=== PATIENT | male | born 1950 | race African-American/Black ===

== ENCOUNTER 2025-04-13 16:28 | Inpatient (IN) | payer MEDICARE, MEDICAID ==
[~2025-04-13] VITALS: Ht 167.6 cm; Wt 56.7 kg
[~2025-04-13 16:28] MED LIST: AMLO5TAB88 MT; AMLO5TAB88 PO; CALC-26 PO; CHOL400D7 PO; CIPR500S3 PO; FINA-37 MT; GABA-529 MT; LEVE100023 PO; MULT-1146 MT; PROP10TA10 PO; TAMS-54 MT
[2025-04-13 17:14] VITALS: BP 146/89; PULSE 71; RESP 18; TEMP 36.6404
[2025-04-13] MEDS ORDERED: ACETAMINOPHEN 325MG TABLET PO PRN (17:30)
[2025-04-13] MEDS ORDERED: ONDANSETRON HCL 4MG/2ML INJ IV PRN (17:30)
[2025-04-13] MEDS ORDERED: DEXTROSE 50% WATER 50ML SYRINGE IV PRN (17:30)
[2025-04-13] MEDS: ENOXAPARIN 40MG/0.4ML SYR SUBCUT SCH (18:00)
[2025-04-13 20:00] VITALS: BP 164/86; PULSE 70; RESP 18; TEMP 36.6; O2SAT 97
[2025-04-13] MEDS: INSULIN LISPRO 100 UNITS/ML SUBCUT SCH (21:00)
[2025-04-13] MEDS: BLOOD SUGAR DIAGNOSTIC STRIP TEST SCH (21:49)
[2025-04-13] MEDS: LEVETIRACETAM 500MG TABLET PO SCH (21:53)
[2025-04-13] MEDS: ATORVASTATIN CALCIUM 40MG TABLET PO SCH (21:54)
[2025-04-14] MEDS ORDERED: ONDANSETRON HCL 4MG/2ML INJ IV PRN (07:15)
[2025-04-14] MEDS ORDERED: ACETAMINOPHEN 325MG TABLET PO PRN (07:15)
[2025-04-14 08:00] VITALS: BP 143/81; PULSE 70; RESP 14; TEMP 36.4; O2SAT 95
[2025-04-14 08:10] LABS: FOLIC ACID (FOLATE) SERUM 12.79 ng/mL (>5.38)
[2025-04-14 08:11] LABS: VITAMIN B12 SERUM 589 pg/mL (211-911)
[2025-04-14] MEDS: ASPIRIN 81MG EC TABLET PO SCH (08:42)
[2025-04-14] MEDS: TAMSULOSIN HCL 0.4MG SR CAPSULE PO SCH (08:43)
[2025-04-14] MEDS ORDERED: PANTOPRAZOLE SODIUM 40 MG/VIAL IV SCH (09:00)
[2025-04-14 09:06] LABS: CREATININE 0.8 mg/dL (0.6-1.3)
[2025-04-14 09:07] LABS: PROTEIN TOTAL 6.8 g/dL (6.0-8.3); UREA NITROGEN BLOOD 17 mg/dL (9-23)
[2025-04-14 09:08] LABS: ASPARTATE AMINOTRANSFERASE 12 IU/L (<34)
[2025-04-14 09:09] LABS: BILIRUBIN TOTAL 0.5 mg/dL (0.1-1.0)
[2025-04-14] MEDS: PANTOPRAZOLE SODIUM 40 MG/VIAL IV SCH (10:21)
[2025-04-14 11:13] LABS: BASOPHILS % 0.5 % (0.0-2.0); EOSINOPHILS % 1.7 % (0.0-5.0); HEMATOCRIT. 30.3 % (42.0-52.0); HEMOGLOBIN. 10.1 g/dL (14.0-18.0); LYMPHOCYTES % 20.1 % (20.0-50.0); MEAN PLATELET VOLUME 7.9 fl (7.4-10.4); MONOCYTES % 8.9 % (2.0-8.0); NEUTROPHILS % 68.8 % (40.0-76.0); PLATELET 241 x1000/uL (130-400); RED BLOOD CELL COUNT 3.64 mill/uL (4.7-6.1); RED CELL DISTRIBUTION WIDTH 17.0 % (11.6-14.6)
[2025-04-14] MEDS: FERROUS SULFATE 325MG TABLET PO SCH (18:07)
[2025-04-14 20:00] VITALS: BP 179/73; PULSE 73; RESP 18; TEMP 37.3; O2SAT 100
[2025-04-14] MEDS: AMLODIPINE 2.5MG TABLET PO SCH (20:28)
[2025-04-14] MEDS: LEVETIRACETAM 500MG TABLET PO SCH (20:28)
[2025-04-15 07:29] LABS: BASOPHILS % 0.5 % (0.0-2.0); EOSINOPHILS % 1.5 % (0.0-5.0); HEMATOCRIT. 29.5 % (42.0-52.0); HEMOGLOBIN. 9.7 g/dL (14.0-18.0); LYMPHOCYTES % 20.8 % (20.0-50.0); MEAN PLATELET VOLUME 8.4 fl (7.4-10.4); MONOCYTES % 9.5 % (2.0-8.0); NEUTROPHILS % 67.7 % (40.0-76.0); PLATELET 224 x1000/uL (130-400); RED BLOOD CELL COUNT 3.54 mill/uL (4.7-6.1); RED CELL DISTRIBUTION WIDTH 17.1 % (11.6-14.6)
[2025-04-15 07:38] LABS: CREATININE 0.8 mg/dL (0.6-1.3); UREA NITROGEN BLOOD 13 mg/dL (9-23)
[2025-04-15 08:00] VITALS: BP 118/66; PULSE 68; RESP 18; TEMP 36.5; O2SAT 100
[2025-04-15] MEDS: POLYETHYLENE GLYCOL 3350 (17GM) 1 DOSE PACK PO SCH (08:24)
[2025-04-15] MEDS: ASCORBIC ACID 500 MG TABLET PO SCH (08:24)
[2025-04-15 20:00] VITALS: BP 137/79; PULSE 73; RESP 18; TEMP 36.6; O2SAT 99
[2025-04-16 08:15] VITALS: BP 133/75; PULSE 74; RESP 19; TEMP 36.5; O2SAT 99
[2025-04-16 20:00] VITALS: BP 120/73; PULSE 76; RESP 18; TEMP 36.1; O2SAT 98
[2025-04-17 08:20] VITALS: BP 122/66; PULSE 79; RESP 20; TEMP 36.1
[2025-04-17 20:00] VITALS: BP 128/74; PULSE 78; RESP 20; TEMP 36.7; O2SAT 98
[2025-04-18 08:00] VITALS: BP 129/64; PULSE 86; RESP 20; TEMP 36.7; O2SAT 99
[2025-04-18 20:00] VITALS: BP 133/85; PULSE 70; RESP 20; TEMP 36.1; O2SAT 98
[2025-04-19 08:00] VITALS: BP 129/80; PULSE 85; RESP 17; TEMP 35.8; O2SAT 100
[2025-04-19 20:00] VITALS: BP 135/74; PULSE 85; RESP 18; TEMP 36.8; O2SAT 96
[2025-04-20] MEDS: FAMOTIDINE 20MG TABLET PO SCH (08:59)
[2025-04-20 20:00] VITALS: BP 121/69; PULSE 81; RESP 20; TEMP 36.6
[2025-04-21 08:00] VITALS: BP 138/82; PULSE 82; RESP 19; TEMP 36.2
[2025-04-21 08:52] VITALS: PULSE 82
== END 2025-04-21 11:05 | disposition left against medical advice (07) | DRG 65 ==
PROVIDERS: ADMIT Physical Medicine & Rehabilitation Spinal Cord Injury Medicine; ATTEND Internal Medicine
DX: I63.89 Other cerebral infarction (principal); G81.91 Hemiplegia, unspecified affecting right dominant side; R29.704 NIHSS score 4; D50.9 Iron deficiency anemia, unspecified; E78.5 Hyperlipidemia, unspecified; E87.6 Hypokalemia; E11.9 Type 2 diabetes mellitus without complications; I10 Essential (primary) hypertension; G40.909 Epilepsy, unspecified, not intractable, without status epilepticus; Z53.29 Procedure and treatment not carried out because of patient's decision for other reasons; R53.81 Other malaise; R26.0 Ataxic gait; F17.290 Nicotine dependence, other tobacco product, uncomplicated; F32.A Depression, unspecified; Z79.02 Long term (current) use of antithrombotics/antiplatelets; Z79.82 Long term (current) use of aspirin; Z91.81 History of falling; R47.01 Aphasia; R47.1 Dysarthria and anarthria; R29.810 Facial weakness; R13.10 Dysphagia, unspecified
CPT/HCPCS: 36415; 80048; 80053; 82140; 82306; 82607; 82728; 82746; 82962; 83036; 83540; 83550; 84134; 84443; 85025; 92523; 92610; 93306; 97110; 97112; 97116; 97162; 97166; 97530; 97535; J1650; J2470

== ENCOUNTER 2025-04-21 12:21 | Emergency (ER) | payer MEDICARE, MEDICAID ==
[~2025-04-21] VITALS: Ht 165.1 cm; Wt 55.0 kg
[2025-04-21 12:27] VITALS: O2SAT 98
[2025-04-21 12:34] VITALS: BP 166/98; PULSE 99; RESP 18; TEMP 36.9; O2SAT 100
== END 2025-04-21 14:20 | disposition left against medical advice (07) ==
LOC: ER 12:21
DX: I63.9 Cerebral infarction, unspecified (principal); I10 Essential (primary) hypertension; E11.9 Type 2 diabetes mellitus without complications; Z86.73 Personal history of transient ischemic attack (TIA), and cerebral infarction without residual deficits; Z79.899 Other long term (current) drug therapy
CPT/HCPCS: 99282